=== PATIENT | male | born 1945 | race Caucasian/White ===

== ENCOUNTER → 2021-01-16 | Outpatient (CLI) | payer MEDICARE, OTHER ==
[~2021-01-16] MED LIST: ASPI81CH PO; CEPH500 PO; CHLO25 PO; CILO100; CLOP75; DISU250 PO; EPIN.3I IM; ESCI20 PO; FERR325 PO; FINA5 PO; FOLI1 PO; HYDACE5325 PO; IBUP400 PO; LISI5 PO; LORA1; METO25 PO; MIRT30 PO; MIRTAZAPINE 45 MG; MULVITMIND PO; OXYC15ER PO; OXYC5; PANT40 PO; SERT25 PO; VIIBRYD40 MG PO; ZOLP10; ZOLP5 PO; [UNRECOGNIZED DRUG - OTHER]
== END ==
LOC: LAB 12:13 → LAB SHORT 12:13
DX: L08.0 Pyoderma (principal)
CPT/HCPCS: 87070; 87205